=== PATIENT | female | born 1945 | race African-American/Black ===

== ENCOUNTER → 2019-10-19 | Outpatient (CLI) | payer MEDICARE, OTHER ==
--- NOTE | 2019-10-22 08:02 | RAD ---
EXAM: ULTRASOUND-GUIDED THYROID FINE-NEEDLE ASPIRATION. HISTORY: Thyroid nodule. Ultrasound-guided biopsy is requested. FINDINGS: The procedure along with its risks and benefits were explained to the patient. They agreed to proceed. A timeout procedure was performed. Sonographic images of the thyroid gland were obtained. The solid target nodule in the left thyroid lobe was adequately visualized for biopsy. The overlying skin was sterilely prepped and infiltrated with 1% lidocaine for local anesthesia. Under ultrasound guidance, 4 aspirates were obtained using 25-gauge needles. These were hand delivered to pathology who determined them adequate for diagnosis. A sterile dressing was placed. There were no immediate complications. IMPRESSION: 1. Successful ultrasound-guided fine-needle aspiration of the left thyroid nodule. Electronically signed by: Gaston Vizcarra MD (10/22/2019 7:59 AM) [facility]
--- NOTE | 2019-10-23 11:07 | PATHOLOGY ---
Note [facility] Accession Number: [id number] TESTS RESULT FLAG UNITS REF RANGE LAB Clinician Provided Cytology Information No. of containers..01 Other (Miscellaneous) Source: LEFT THYROID DIAGNOSIS: LEFT THYROID NEGATIVE FOR MALIGNANT CELLS. B[place]ES[place] CATEGORY II. SPECIMEN CONSISTS OF CLUSTERS OF FOLLICULAR EPITHELIAL CELLS, HEMOSIDERIN-LADEN MACROPHAGES, SCANT COLLOID AND BLOOD. THIS PATTERN IS CONSISTENT WITH AN ADENOMATOUS NODULE. THIS INTERPRETATION INCLUDES EVALUATION OF A CELL BLOCK. Pathologist ICD10: 02 E06.3 Signed out by: 02 Yonis Aragon MD, Pathologist NPI- [id number] Performed by: Dorina Del Castillo, [place] ([facility]) Gross description: 01 30ML, CLEAR PINK, 2FX 2AD /LCS 10/19/2019 1901 Local FLAG LEGEND: L-Low Normal,H-High Normal,LL-Alert Low,HH-Alert High <-Panic Low,>-Panic High,A-Abnormal,AA-Critical Abnormal Performed at: [facility] [address] [place] [address] Ethan Camp MD, [address] [facility] [address] [place] [address] Yonis Aragon MD, Specimen Comment: A courtesy copy of this report has been sent to [phone], [phone]- Specimen Comment: [phone], Specimen Comment: Report sent to DR SALAS,DR BEE / DR AMADOR Specimen Comment: Report sent to Specimen Comment: A duplicate report has been generated due to demographic updates. Performed at: [address] [facility] [id number], [place] [id number] MD Ethan Camp MD Phone: [phone]
== END ==
LOC: US 10:23
PROVIDERS: ATTEND Surgery
DX: E04.1 Nontoxic single thyroid nodule (principal)
CPT/HCPCS: 10005; 60300; 76942; 88173; 88305